=== PATIENT | male | born 1935 | race Caucasian/White ===

== ENCOUNTER 2019-03-01 15:52 | Inpatient (IN) ==
[2019-03-01] MEDS ORDERED: ASPIRIN PO ONE (15:57)
--- NOTE | 2019-03-01 16:48 | PROVIDER DOCUMENTATION ---
HPI-Chest Pain - General Chief Complaint: Chest Pain Stated Complaint: CHEST DISCOMFORT Time Seen by Provider: 03/01/19 16:04 Source: patient Allergies/Adverse Reactions: Patient Allergies Allergy/AdvReac Type Severity Reaction Status Date / Time No Known Allergies Allergy Verified 12/23/16 14:54 Home Medications: Home Medication List Medication Instructions Recorded Confirmed Last Taken Type Benzonatate [Tessalon Perle] 100 mg PO TID PRN #30 cap 04/04/18 Unknown Rx - History of Present Illness-CP Nature of Presenting Problem: pt 84 yo WM w no pertinent PMH other than arrhythmia x 50 years w/o medication a nd chronic edema in lower extremities due to PVD. pt states he has short episode of left side chest discomfort after eating [employer] last night. episode was less than 30 minutes duration. pt. has no sx at this time. pt states he is feeling better at this time. Location: reports: other (left lower chest, LUQ) Chest Pain Radiation: reports: no radiation Quality of Pain: reports: indigestion, pressure Severity in ED: mild Onset/Duration: last night Timing: resolved prior to arrival Context/Activities at Onset: reports: other (after eating [employer] last night) Modifying Factors: improves with: eating Associated Symptoms: reports: denies symptoms Nitro Today/Relief: no nitro taken today Aspirin Treatment Today: provided by ED Similar Symptoms Previously?: No Recently Seen Here or By Another Healthcare Provider: No Review of Systems - Adult - REVIEW OF SYSTEMS - ADULT Constitutional: reports: no symptoms reported Eyes: reports: no symptoms reported Ears, Nose, Mouth & Throat: reports: no symptoms reported Cardiovascular: reports: no symptoms reported Respiratory: reports: no symptoms reported Gastrointestinal: reports: no symptoms reported Genitourinary: reports: no symptoms reported Musculoskeletal: reports: no symptoms reported Integumentary: reports: no symptoms reported Neurological: reports: no symptoms reported Psychiatric: reports: no symptoms reported Endocrine: reports: no symptoms reported Hematologic/Lymphatic: reports: no symptoms reported Allergic/Immunologic: reports: no symptoms reported All Other Systems: Reviewed and Negative Past History - Adult - PAST MEDICAL HISTORY-ADULT Review of Records: reports: Old Records Reviewed, Nursing Assessment Review, Medications Reviewed Major Childhood Illnesses: reports: denies history Cardiovascular: reports: denies history Respiratory: reports: denies history Gastrointestinal: reports: denies history Obstetrical/Gynecological: reports: denies history Genitourinary: reports: denies history Musculoskeletal: reports: denies history Neurological: reports: denies history Endocrine/Immune: reports: denies history Other Conditions: reports: denies history - PRIOR SURGERIES/PROCEDURES Surgical/Procedure History: reports: reviewed, not pertinent - IMMUNIZATION STATUS Childhood Immunizations: See Nurse Assessment Flu Vaccine: See Nurse Assessment - FAMILY HISTORY Family History: reviewed, not pertinent - SOCIAL HISTORY Smoking: denies Substance Use: none/never Alcohol Use Frequency: never Physical Exam-General - PHYSICAL EXAM-ADULT Initial Vital Signs Reviewed: Yes - CONSTITUTIONAL General Appearance: appears well, alert, no apparent distress - EYES Eyes: PERRL/EOMI, pink conjunctivae - HEAD, EARS, NOSE, MOUTH & THROAT HENMT: normocephalic/atraumatic, moist mucous membranes - NECK Neck: non-tender, full range of motion, supple - RESPIRATORY Respiratory: chest non-tender, lungs clear - CARDIOVASCULAR Cardiovascular: normal peripheral pulses, regular rate, rhythm - GASTROINTESTINAL (ABDOMEN) Abdominal Exam: normal bowel sounds, non tender, soft - LYMPHATIC Lymphatic: no adenopathy - MUSCULOSKELETAL Back Exam: normal inspection Extremity: normal range of motion, non-tender - SKIN Integumentary: normal color, normal turgor, warm/dry - NEUROLOGIC Neurologic: grossly normal, no motor/sensory deficits - PSYCHIATRIC Psych/Mental Status: normal mood/affect, normal thought content, normal thought process, oriented x 3 - HEART Score HEART Score: History: Moderately Suspicious HEART Score: ECG: Non-Specific Repolarization Disturbance/LBBB/PM HEART Score: Age: > or = 65 Years HEART Score: Risk Factors for Atherosclerotic Disease: 1 or 2 Risk Factors HEART Score: Troponin: < or = Normal Limit Total HEART Score:: 5 Progress - PLAN OF CARE/RESULTS Progress/Plan/Lab Results: Vital Signs - 8 hr 03/01/19 15:57 03/01/19 17:18 Temperature 98.4 F Pulse Rate 44 L 66 Respiratory Rate 18 18 Blood Pressure 162/69 118/66 O2 Sat by Pulse Oximetry 95 Laboratory Results - last 24 hr 03/01/19 03/01/19 03/01/19 16:30 16:30 16:30 WBC 5.73 RBC 4.88 Hgb 13.7 L Hct 42.8 MCV 87.7 MCH 28.1 MCHC 32.0 L RDW Std Deviation 13.0 Plt Count 175 MPV 11.0 H Immature Gran % (Auto) 0.2 Neut % (Auto) 60.2 Lymph % (Auto) 23.9 Wise % (Auto) 11.9 H Eos % (Auto) 3.3 Baso % (Auto) 0.5 Immature Gran # (Auto) 0.01 Neut # (Auto) 3.45 Lymph # (Auto) 1.37 Wise # (Auto) 0.68 H Eos # (Auto) 0.19 Baso # (Auto) 0.03 PT INR PTT (Actin FS) Sodium 143 Potassium 4.3 Chloride 105 Carbon Dioxide 26 Anion Gap 12 BUN 21 Creatinine 0.8 Estimated GFR/1.73 m2 > 60 BUN/Creatinine Ratio 26 Glucose 115 H Calculated Osmolality 289 Calcium 8.8 Total Bilirubin 0.40 AST 17 ALT 16 Alkaline Phosphatase 55 Creatine Kinase 136 Troponin T Bqz-[id number]-Nnxczzxxffl Pept 143 Total Protein 6.5 Albumin 4.4 Globulin 2.0 Albumin/Globulin Ratio 2.0 03/01/19 03/01/19 16:30 16:30 WBC RBC Hgb Hct MCV MCH MCHC RDW Std Deviation Plt Count MPV Immature Gran % (Auto) Neut % (Auto) Lymph % (Auto) Wise % (Auto) Eos % (Auto) Baso % (Auto) Immature Gran # (Auto) Neut # (Auto) Lymph # (Auto) Wise # (Auto) Eos # (Auto) Baso # (Auto) PT 12.7 INR 0.91 PTT (Actin FS) 28.6 Sodium Potassium Chloride Carbon Dioxide Anion Gap BUN Creatinine Estimated GFR/1.73 m2 BUN/Creatinine Ratio Glucose Calculated Osmolality Calcium Total Bilirubin AST ALT Alkaline Phosphatase Creatine Kinase Troponin T < 0.010 Vny-P-Aevryibeggo Pept Total Protein Albumin Globulin Albumin/Globulin Ratio Orders Category Date Time Status Cardiac Monitoring DIRECTED Care 03/01/19 15:58 Active Oxygen Therapy- ED Nursing DIRECTED Care 03/01/19 15:58 Active Saline Loc NOW Care 03/01/19 15:58 Active CHEST-2 VIEWS [RAD] Stat Exams 03/01/19 15:58 Completed CBC WITH ELECTRONIC DIFF [HEME] Stat Lab 03/01/19 16:30 Completed CK PROFILE [SP CHEM] Stat Lab 03/01/19 16:30 Completed CK PROFILE [SP CHEM] Stat Lab 03/01/19 18:17 Received COMPREHENSIVE METABOLIC PANEL [CHEM] Stat Lab 03/01/19 16:30 Completed PRO B-NATRIURETIC PEPTIDE Stat Lab 03/01/19 16:30 Completed PROTIME WITH INR [COAG] Stat Lab 03/01/19 16:30 Completed PTT [COAG] Stat Lab 03/01/19 16:30 Completed TROPONIN T Stat Lab 03/01/19 16:30 Completed TROPONIN T Stat Lab 03/01/19 18:17 Received Aspirin Med 03/01/19 15:57 Discontinued 325 mg PO NOW ONE CP/SOB/Palp >45 yrs of Age Stat Oth 03/01/19 15:57 Ordered EKG [EKG] Stat Ther 03/01/19 15:58 Draft EKG [EKG] Stat Ther 03/01/19 17:23 Ordered Transfer/Admit Order [TRANSFER] Routine Transfer 03/01/19 18:10 Ordered discussed with Penot and the patient the need for observation, the patient agr eed to observation and will be admitted to [facility]. discussed labs and findings with patient. pt verbalized understanding and agreed with POC. Result Diagrams: 03/01/19 16:30 03/01/19 16:30 - REASSESSMENT Reassessment #1 Status: unchanged Reassessment Comment: pt is asymptomatic in good spirits - EKG 1 Time of EKG reading by physician:: 16:10 EKG Read and Signed by:: Naldo Hughes EKG Interpretation (*Must complete 3 of following elements*): Abnormal Rate: 56 Rhythm: nsr [place]: normal QRS: normal Comments: sinus pedro w 1st degree AV block arrythmia - XRAY 1 XRAY Study: Chest Impression: Normal XRAY Interpretation: fibrotic changes NAD Departure - Departure Date of Disposition Decision: 03/01/19 Time of Disposition Decision: 18:26 DIAGNOSIS: Chest pain Disposition: ADMITTED INPATIENT 09 Certified Medical Emergency: Emergent Condition: Stable Referrals and Follow-Ups: Burt Haines [Primary Care Provider] - - Critical Care Note This patient required my direct & personal management of CC.: No Attestation - Physician/ ERVIN Attestation Patient care was provided by Advanced Practice Provider:: Yes Advanced Practice Provider:: Lyndsey Castaneda Advanced Practice Provider documentation review:: The Mid-level provider documentation, treatment plan and medical decision making was reviewed by the physician who agrees with all treatment and medical decision making by the MLP. The physician spent face to face time with patient:: No Advanced Practice Provider documentation review:: Supervising physician onsite and consulted in the evaluation and care of this patient. The physician did not have a face to face encounter with the patient.
[2019-03-01 16:50] LABS: BASO# 0.03 X1000 (0.0-0.2); BASO% 0.5 % (0.0-0.8); EOS# 0.19 X1000 (0.0-0.7); EOS% 3.3 % (0.0-10.0); HEMATOCRIT 42.8 % (42.0-52.0); HEMOGLOBIN 13.7 g/dL (14.0-18.0); IMM GRAN# 0.01 X1000 (0.0-0.04); IMM GRAN% 0.2 % (0.0-0.5); LYMPH# 1.37 X1000 (1.2-3.4); LYMPH% 23.9 % (20.5-51.1); MCH 28.1 PG (27-31); MCV 87.7 FL (81-99); MONO# 0.68 X1000 (0.11-0.59); MONO% 11.9 % (1.7-9.3); NEUT# 3.45 X1000 (1.4-6.5); NEUT% 60.2 % (42.2-75.2); PLT 175 X1000 (130-400); RBC 4.88 XMIL (4.7-6.1); WBC 5.73 X1000 (4.8-10.8)
[2019-03-01 16:58] LABS: INR 0.91; PROTIME 12.7 Seconds (11.0-16.0)
[2019-03-01 16:59] LABS: PTT 28.6 Seconds (22.3-41.8)
[2019-03-01 17:07] LABS: AGAP 12; ALBUMIN 4.4 g/dL (3.5-5.0); ALKALINE PHOSPHATASE 55 U/L (32-122); BUN 21 mg/dL (8-22); CALCIUM 8.8 mg/dL (8.8-10.2); CHLORIDE 105 mmol/L (98-107); CK PROFILE 136 U/L (24-204); COSMO 289; CREATININE 0.8 mg/dL (0.7-1.2); ESTIMATED GFR > 60; GLUCOSE 115 mg/dL (70-104); GOT 17 U/L (10-34); GPT 16 U/L (10-44); POTASSIUM 4.3 mmol/L (3.5-5.1); SODIUM 143 mmol/L (136-145); TCO2 26 mmol/L (25-35); TOTAL PROTEIN 6.5 g/dL (6.3-8.3)
--- NOTE | 2019-03-01 17:09 | Diag Imaging Result Doc PS360 ---
EXAM: CHEST-2 VIEWS 03/01/2019 HISTORY: cp TECHNIQUE: PA and lateral chest COMMENT: There are ill-defined opacities in both lung bases which have not changed since 04/08/2018. There is a calcified nodule in the left apex. IMPRESSION: Bibasilar fibrotic changes. No evidence of acute disease. Electronically signed by Chetan Vargas 03/01/2019 5:06 PM
--- NOTE | 2019-03-01 17:25 | EKG Report ---
Test Performed on : 03/01/2019 4:10:13 PM Test Reason : cp Blood Pressure : / mmHG Vent. Rate : 053 BPM Atrial Rate : 053 BPM P-R Int : 216 ms QRS Dur : 106 ms QT Int : 422 ms P-R-T Axes : 068 032 041 degrees QTc Int : 395 ms Sinus bradycardia. with marked sinus arrhythmia. with 1st degree AV block. Otherwise normal ECG When compared with ECG of 01-MAR-2019 16:09, (Unconfirmed) premature supraventricular complexes. are no longer present Unconfirmed Result
[2019-03-01] MEDS ORDERED: ZOFRAN IV PRN (18:46)
[2019-03-01] MEDS ORDERED: TYLENOL PO PRN (18:46)
--- NOTE | 2019-03-01 19:10 | EKG Report ---
Test Performed on : 03/01/2019 6:29:27 PM Test Reason : repeat Blood Pressure : / mmHG Vent. Rate : 064 BPM Atrial Rate : 064 BPM P-R Int : 190 ms QRS Dur : 108 ms QT Int : 406 ms P-R-T Axes : 024 036 025 degrees QTc Int : 418 ms Sinus rhythm. with marked sinus arrhythmia. Cannot rule out Inferior infarct , age undetermined Abnormal ECG When compared with ECG of 01-MAR-2019 16:10, (Unconfirmed) Nonspecific T wave abnormality, worse in Inferior leads Unconfirmed Result
--- NOTE | 2019-03-02 09:54 | HISTORY AND PHYSICAL ---
PRIMARY CARE PHYSICIAN: Dr. Burt Haines. CHIEF COMPLAINT: Chest pressure to the left side of his chest shortly after eating supper last night, that progressively worsened. HISTORY OF PRESENTING ILLNESS: This is an 84-year-old, male who presents to [facility] ER with complaints of chest pressure on the left side of his chest that began after he was eating supper last night. Denied any radiating of symptoms. Denied any shortness of breath, nausea, vomiting, diaphoresis. States he did feel a little bit of a palpitation at one point. When he arrived to the emergency room, his initial EKG showed sinus bradycardia with marked sinus arrhythmia, with a first-degree AV block at 53. His repeat EKG about 2 hours later showed sinus rhythm with marked sinus arrhythmia at 64. He has continued on telemetry to have bradycardia in the upper 30s to the low to mid 40s. He denies any symptoms currently. He has had 3 cardiac enzyme sets that were negative but he was admitted for further evaluation and treatment. PAST MEDICAL HISTORY: None. PAST SURGICAL HISTORY: None. FAMILY HISTORY: Reviewed and noncontributory. SOCIAL HISTORY: Currently lives with family. He is a former smoker but has been quit for 40+ years. Denied any alcohol or illicit drug use. ALLERGIES: He has no known drug allergies. HOME MEDICATIONS: He does not take any medications on a routine basis. LABORATORY DATA: Showed a white blood cell count of 5.73, hemoglobin 13.7, hematocrit 42.8, platelets 170,000. PT and INR of 12.7 and 0.91. Sodium 143, potassium 4.3, chloride 105, CO2 of 26, BUN of 21, creatinine 0.8, glucose 115. Cardiac enzymes x3 sets were negative. Chest x-ray showed bibasilar fibrotic changes and no evidence of acute disease. EKG on arrival showed sinus bradycardia with marked sinus arrhythmia, with a first-degree AV block at 53. Repeat 2 hours later showed normal sinus rhythm with marked sinus arrhythmia at 64. REVIEW OF SYSTEMS: He denied any fever, chills, blurred vision, dizziness. He did have left- sided chest pain, nonradiating. Denied any shortness of breath or cough. Denied any abdominal pain, constipation, diarrhea, burning or hurting with urination. PHYSICAL EXAMINATION: VITAL SIGNS: On arrival, he had a temperature of 98.4 degrees, pulse was 44, respirations 18, blood pressure 162/69, saturating 95% on room air. Currently, he has a heart rate in the upper 30s to low 40s. Blood pressure is 115/57. GENERAL: This is an 84-year-old, male who is lying in the bed and answers questions appropriately. HEENT: Normocephalic, atraumatic. Normal ENT inspection. Oropharynx and nares are clear. Eyes: Pupils are equal, round, and reactive to light. Extraocular movements are intact. NECK: Normal inspection. Normal range of motion. LUNGS: Clear to auscultation bilaterally with equal lung expansion and chest wall movement. HEART: With bradycardia noted. No murmurs, rubs, or gallops. ABDOMEN: Soft, nontender, nondistended. Bowel sounds are present x4 quadrants. MUSCULOSKELETAL: He has 5/5 strength x4 extremities. NEUROLOGICAL: The cranial nerves 2-12 appear grossly intact. ASSESSMENT: 1. Chest pain. 2. Bradycardia. PLAN: He has been admitted to the medical unit, placed on telemetry. We are going to check an echocardiogram today. Consult cardiology. Placed on a healthy heart diet. Further orders after seen by attending and by ada accommodation consultant. Dictated by KARLA Bailey for José Luis Salazar MD cc: KARLA Bailey MD Alan Walker, MD
--- NOTE | 2019-03-02 14:07 | PROGRESS NOTE ---
DATE: 03/02/2019 The patient came in with palpitations and left-sided chest pain. He is 84. He has no medical problems. He reports palpitations sometimes with too much caffeine but really no other symptoms. He was placed in observation. However, he did have a heart rate that intermittently dropped into the 30s. Lowest recorded is 44 but there was, on telemetry, down into the high 30s. Still a sinus rhythm. Does not look like a second-degree block. He is not symptomatic as far as blood pressure or dizziness but he does drop into the 30s and he has got a significant first-degree AV block. On exam, otherwise, he is unremarkable. We will admit him for treatment. Dr. Welsh has been consulted and would [facility] in case any intervention, I guess, needs to be done. I will go ahead and order a Lexiscan for tomorrow. For his bradycardia., I am not sure if he is not going to need intervention such as a pacemaker but we will allow Dr. Welsh to evaluate for that. I will go ahead and order an echocardiogram, or it has been ordered, and a Lexiscan for tomorrow, pending cardiology evaluation. cc: José Luis Salazar MD
--- NOTE | 2019-03-02 14:42 | EKG Report ---
Test Performed on : 03/02/2019 1:25:05 PM Test Reason : bradycardia with rhythm strip Blood Pressure : / mmHG Vent. Rate : 054 BPM Atrial Rate : 054 BPM P-R Int : 226 ms QRS Dur : 122 ms QT Int : 454 ms P-R-T Axes : 076 056 067 degrees QTc Int : 430 ms Sinus bradycardia. with 1st degree AV block. with premature atrial complexes. Nonspecific intraventricular conduction delay Borderline ECG When compared with ECG of 01-MAR-2019 18:29, (Unconfirmed) premature atrial complexes. are now present VA interval has increased Nonspecific T wave abnormality no longer evident in Inferior leads Confirmed by Naldo Hughes MD ([id number]) on 03/06/2019 1:48:16 AM
[2019-03-02] MEDS ORDERED: TYLENOL PO PRN (17:20)
[2019-03-02] MEDS ORDERED: ZOFRAN IV PRN (17:20)
[2019-03-03] MEDS ORDERED: LOVENOX SUBQ SCH (06:00)
[2019-03-03 07:37] LABS: BASO# 0.03 X1000 (0.0-0.2); BASO% 0.4 % (0.0-0.8); EOS# 0.23 X1000 (0.0-0.7); EOS% 3.4 % (0.0-10.0); HEMATOCRIT 47.8 % (42.0-52.0); HEMOGLOBIN 15.7 g/dL (14.0-18.0); LYMPH# 1.91 X1000 (1.2-3.4); LYMPH% 28.3 % (20.5-51.1); MCH 28.8 PG (27-31); MCHC 32.8 g/dL (33-37); MCV 87.7 FL (81-99); MONO# 0.77 X1000 (0.11-0.59); MONO% 11.4 % (1.7-9.3); MPV 11.6 FL (7.4-10.4); NEUT# 3.82 X1000 (1.4-6.5); NEUT% 56.5 % (42.2-75.2); PLT 202 X1000 (130-400); RBC 5.45 XMIL (4.7-6.1); RDW 13.1 % (11.5-14.5); WBC 6.76 X1000 (4.8-10.8)
[2019-03-03 08:11] LABS: AGAP 13; BUN 17 mg/dL (8-22); CALCIUM 9.2 mg/dL (8.8-10.2); CHLORIDE 102 mmol/L (98-107); COSMO 285; CREATININE 0.9 mg/dL (0.7-1.2); ESTIMATED GFR > 60; GLUCOSE 146 mg/dL (70-104); MAGNESIUM 2.3 mg/dL (1.5-2.7); POTASSIUM 4.1 mmol/L (3.5-5.1); SODIUM 141 mmol/L (136-145); TCO2 26 mmol/L (25-35)
[2019-03-03] MEDS ORDERED: LEXISCAN ONE (08:54)
[2019-03-03] MEDS ORDERED: ASPIRIN EC PO SCH (09:00)
--- NOTE | 2019-03-03 10:32 | CARDIOLOGY CONSULTATION ---
DATE: 03/03/2019 HISTORY OF PRESENT ILLNESS: An 84-year-old gentleman who was seen today, who was admitted with chest discomfort and bradycardia. He is an 84-year-old who came to the emergency room with some left-sided pressure-like sensation after he had dinner yesterday. He describes it as heaviness. It did not radiate anywhere. He did not have any associated shortness of breath or diaphoresis. There was no nausea or vomiting. The pain occurred at rest. He was ruled out for myocardial infarction by cardiac enzymes. Electrocardiogram revealed a sinus bradycardia with sinus arrhythmia. The patient has had longstanding bradycardia, was an active runner in the past, exercises regularly on a bicycle, and takes care of his who is disabled. REVIEW OF SYSTEMS: A 14-point review of systems was done.Gastrointestinal System: There is no history of nausea, vomiting, diarrhea. There is no history of hematemesis or melena. Central Nervous System: No focal weakness to suggest a CVA, TIA. Genitourinary System: There is no dysuria or hematuria. PAST MEDICAL HISTORY: There is no history of hypertension, diabetes, or coronary artery disease. ALLERGIES: He is not known to be allergic to any medications. MEDICATIONS: He is not on any medicines. SOCIAL HISTORY: The patient is and retired. He lives at home with his of 62 years. He cares for her. She is disabled. Does not smoke. Does not drink. FAMILY HISTORY: Noncontributory. PHYSICAL EXAMINATION: Vital Signs: On examination, blood pressure was 130/60. Cardiovascular System: Normal jugular venous pressure. There is no thyromegaly. No carotid bruit. First and second heart sounds were heard. There was no S3 gallop. Respiratory System: Normal air entry. There are no crepitations or rhonchi. Abdomen: Soft. Nontender. There was no guarding or rigidity. Bowel sounds were heard. Central Nervous System: Alert, oriented, was moving all 4 extremities. Extremities: Examination of extremities revealed no pedal edema. LABORATORY EXAMINATION: Sodium 141, potassium 4.1, BUN 17, creatinine 0.9. Cardiac enzymes negative. WBC 6.76, hemoglobin 15.7, hematocrit 47.8, platelet 202,000. Chest x-ray, basilar fibrotic changes. ASSESSMENT AND PLAN: 1. Mr. Angel Barakat is an 84-year-old healthy gentleman without any significant past medical history, not on any medications. He was admitted with chest pain after he had dinner. He has been ruled out for myocardial infarction by cardiac enzymes. We will get a Cardiolite stress test to rule out ischemia. 2. Bradycardia was noted. He is in sinus bradycardia on telemetry. No significant pedro arrhythmias. 3. We will get an echocardiogram to assess cardiac and valvular function. Thank you for the consult. We will follow hospital course. cc: John Licea MD
--- NOTE | 2019-03-03 15:10 | PROGRESS NOTE ---
DATE: 03/03/2019 SUBJECTIVE: This morning Mr. Barakat refers to be doing a lot better. Denies any more chest pain. Mr. Barakat has already undergone his echocardiogram and stress test and we are pending the results. OBJECTIVE: Vital signs: Blood pressure is 130/61, pulse of 69, respirations 14, temperature 98.0 degrees. General: Mr. Barakat is an 84-year-old male. He is in bed, no distress. HEENT: Mucosa is pink and moist. Anicteric. Acyanotic. Neck: Supple. Chest: Good air entry bilaterally. There are no crepitations and no rhonchi. Cardiovascular: Regular rate and rhythm. Abdomen: Soft, nontender. Bowel sounds present. Extremities: No pedal edema. SPINNING AND WINDING SUPERVISOR: Patient is awake, alert, and oriented. LABORATORY DATA: CBC is completely unremarkable. Chemistry is also within normal range. Troponins have been done 3 times, all within normal range. ProBNP is 143. A chest x-ray showed bibasilar fibrotic changes. No evidence of acute disease. Admitting EKG showed normal sinus rhythm. No ST or T-wave abnormality. A repeat EKG is this morning shows sinus arrhythmia, possible first-degree block, but no ST-segment or T-wave abnormality. ASSESSMENT: 1. Atypical chest pain, to rule out coronary artery disease. The patient has been ruled out for acute AR. We are waiting on the stress test and the echocardiogram. 2. Asymptomatic sinus bradycardia. cc: Juanjose Barajas MD MTDD
[2019-03-03 16:22] VITALS: BP 132/75
--- NOTE | 2019-03-03 16:24 | Diag Imaging Result Document ---
PROCEDURE NAME: MYOCARDIAL PERF SCAN, STR/REST - 03/03/2019 STUDY: Treadmill exercise rest/stress myocardial perfusion study. REQUESTING PHYSICIAN: Dr. Salazar INDICATION: Patient with chest pain. DESCRIPTION: The patient came into the nuclear lab and received rest injection of technetium 99 sestamibi 13.2 mCi. Multiple tomographic views of the cardiac structures were obtained at rest. Subsequently, the patient underwent treadmill exercise protocol. At peak exercise, injected with technetium 99 sestamibi 42.6 mCi. Multiple tomographic views of the cardiac structures were obtained following the completion of the exercise protocol. SUMMARY OF THE ELECTROCARDIOGRAPHIC PORTION OF THE STUDY: Resting electrocardiogram shows sinus bradycardia with rate of 54 beats per minute. Resting ECG shows sinus rhythm with left ventricular hypertrophy, possible inferior scar and diffuse repolarization abnormality. The patient walked on the treadmill for 3 minutes and 30 seconds. He completed one stage of the Scar protocol and walked for 30 seconds into the second stage. Maximum heart rate achieved was 127 beats per minute, representing 94% of maximum predicted heart rate for his age. Maximum blood pressure is 180/89. Workload is 4.6 METS. The peak exercise ECG showed sinus tachycardia with diffuse repolarization abnormality. The patient was injected with radiotracer one minute prior to termination of exercise. The patient reported no chest pain, shortness of breath, or palpitations. Following completion of the test the heart rate and blood pressure returned back to their baseline. Frequent PVCs were noted during the exercise portion of the study with ventricular couplets and one three beat run of ventricular tachycardia. No significant abnormality is noted during the recovery phase. In summary, the electrocardiographic response to exercise is deemed to be inconclusive due to the presence of diffuse repolarization abnormality. SUMMARY OF THE MYOCARDIAL PERFUSION PORTION OF THE STUDY: Poststress tomographic views of the left ventricle showed normal homogeneous distribution of the radiotracer throughout the entire left ventricular myocardium. There was no evidence of any postexercise defect. Rest images show normal perfusion. The polar plots revealed the same. There is no evidence of any inducible ischemia nor myocardial scar. Gated SPECT showed normal left ventricular systolic function. The ejection fraction is calculated at 67% with normal ventricular volumes and no wall motion abnormality. The lung/heart ratio is 0.37. TID is 0.6. CONCLUSION: In summary, this study shows: 1. Inconclusive electrocardiographic response to a treadmill exercise protocol due to diffuse repolarization abnormality on the baseline ECG and exaggeration of the abnormality during the exercise. Workload achieved is 4.6 METS, 94% of maximum predicted heart rate accomplished. Level of stress based on double product of peak systolic blood pressure x peak heart rate is acceptable at 22,860. Blood pressure rise was physiologic. Exercise capacity is decreased by 30%. 2. Normal poststress myocardial perfusion scan. There is no scintigraphic evidence of exercise- induced myocardial ischemia. 3. Normal left ventricular systolic function with ejection fraction estimated at 67% with normal ventricular volumes and no wall motion abnormality. Clinical correlation is recommended. cc: MD José Luis Tocsano MD
--- NOTE | 2019-03-03 20:35 | ECHO REPORT ---
ORDER DATE: 03/02/2019 INDICATION: Chest pain. Bradycardia. M-MODE MEASUREMENTS: Left ventricle end diastole: 5.0. Left ventricle end systole: 3.5. Posterior wall: 1.0. Interventricular septum: 1.0. Left atrium: 4.4. Aortic diameter: 3.4. SUMMARY OF 2-DIMENSIONAL IMAGIN. The left ventricular function is normal. Ejection fraction of 60% to 65%. The study is technically difficulty. The chamber is not dilated. 2. The aortic valve looks normal. Color flow mapping unremarkable. 3. The pulmonic valve looks normal. Color flow mapping unremarkable. 4. The tricuspid valve looks normal. Color flow mapping indicates mild degree of regurgitation. 5. Pulmonary pressure is estimated at 39 to 44 mmHg. 6. The mitral valve looks normal with mild degree of regurgitation. 7. Pulse wave Doppler of mitral inflow shows normal E/A ratio. 8. Tissue Doppler of septal and lateral mitral annulus averages 10 cm. 9. Pulmonary venous flow is normal. There is no diastolic dysfunction. 10.The atria appear to be grossly normal. 11.There is no pericardial effusion, mass, and no thrombus. 12.The right-sided chambers do not appear to be dilated. Clinical correlation is recommended. cc: MD Shannon Toscano CRNP MTDD
--- NOTE | 2019-03-04 20:42 | DISCHARGE SUMMARY ---
ADMISSION DATE: 03/01/2019 DISCHARGE DATE: 03/03/2019 DISPOSITION: Home. FOLLOW-UP: 1. Dr. Burt Haines. 2. Dr. Licea. CONSULTATION DURING THIS ADMISSION: Cardiology was consulted. The patient was seen by Dr. Licea. INVASIVE PROCEDURES DONE DURING THIS ADMISSION: None. IMAGING STUDIES OF SIGNIFICANCE: 1. A chest x-ray showed bibasilar fibrotic changes. No evidence of acute disease. 2. An echocardiogram showed an ejection fraction of 60 to 65 percent. No other wall motion abnormality. 3. A myocardial perfusion scan showed normal post-stress myocardial perfusion scan. No scintigraphic evidence of exercise-induced myocardial ischemia. ADMISSION DIAGNOSES: 1. Chest pain. 2. Bradycardia. DIAGNOSIS AT THE TIME OF DISCHARGE: 1. Atypical chest pain with unremarkable electrocardiogram. Troponins and negative stress test and echo, most likely noncardiac. 2. Asymptomatic sinus bradycardia. DISCHARGE MEDICATIONS: None. PRESENTING COMPLAINT: Chest pressure. HISTORY OF PRESENTING COMPLAINT: Mr. Barakat is an 84-year-old male who has no significant past medical history, presented to [facility] because of chest pressure on the left side, which denied any associated symptoms. Upon presentation, he was found to be in first- degree AV block with a heart rate of 53. EKG repeated 2 hours later showed the heart rate of 64. However, his heart rate sometimes dipped to the low 30s to 40s. The patient was subsequently admitted to rule out any acute coronary syndrome/coronary artery disease. Mr. Barakat was transferred from [place] to [facility]. Troponins were trended 3 times. They were all negative. EKG did not show any remarkable changes. The patient was evaluated by Cardiology and it was deemed necessary to do a stress and echocardiogram, both of which came back negative. Mr. Barakat was seen today. Please refer to the details of my progress note. He did refer to be feeling well and he had no more chest discomfort or pressure. We think with a negative workup, his chest is probably noncardiac. He has however been advised to follow up with his primary care doctor. All the discharge instructions discussed with him and he voiced understanding. TIME SPENT FOR DISCHARGE: Is 35 minutes. cc: MD Burt Palacios MD Ashish K. Basu, MD
== END 2019-03-03 17:40 | disposition home or self-care (01) | DRG 313 ==
LOC: P.MEDSURG 15:52 → P.ED 15:52 → OBSVTOIN 18:37 → SUATTDRO 18:37 → 2N 03-02 17:18
PROVIDERS: ATTEND Internal Medicine